=== PATIENT | female | born 1980 | race Caucasian/White ===

== ENCOUNTER 2017-04-20 17:49 | Emergency (ER) | payer MEDICAID ==
[~2017-04-20] VITALS: Wt 67.0 kg
[~2017-04-20 17:49] MED LIST: PREN1TAB12 PO; PREN1TAB49
[2017-04-20 19:16] VITALS: BP 143/78; PULSE 97; RESP 18
[2017-04-20] MEDS ORDERED: ZOLP5TAB PO (19:58)
--- NOTE | 2017-04-20 21:20 | ERD ---
ER Documentation Chief Complaint Date/Time DATE: 04/20/17 TIME: 21:17 Chief Complaint "I FEEL TIRED LATELY AND CAN'T SLEEP" HPI This is a 37-year-old female presents to the ER because she is not able to sleep over the last 4 days. Patient states that she tries to go to sleep at however she cannot. Patient denies any stress. She is complaining of irregular periods, which she is on her menstrual period right now. Patient was hoping to get hormone testing done today. Patient denies any fevers or chills persistence any chest pain shortness of breath. ROS 12 point review of systems was done, all negative except per HPI. Medications Home Meds Active Scripts Zolpidem Tartrate* (Ambien*) 5 Mg Tablet, 5 MG PO QHS Y for INSOMNIA, #3 TAB Prov:RANJIT FERNANDES 04/20/17 Reported Medications [None] No Conflict Check 10/17/12 Vit/Fe Fumarate/Fa ( 1-1 Tablet) 1 Tab Tablet, 1 TAB PO DAILY 06/21/12 Vits W-Ca,Fe,Fa(<1MG) () 1 Tab Tablet 11/15/11 Allergies Allergies: Coded Allergies: No Known Allergy (Unverified , 11/15/11) PMhx/Soc History of Surgery: No Anesthesia Reaction: No Hx Neurological Disorder: No Hx Respiratory Disorders: No Hx Cardiac Disorders: No Hx Psychiatric Problems: No Hx Miscellaneous Medical Probl: No Hx Alcohol Use: No Hx Substance Use: No Hx Tobacco Use: No Smoking Status: Never smoker Physical Exam Vitals Vital Signs Date Time Temp Pulse Resp B/P Pulse Ox O2 Delivery O2 Flow Rate FiO2 04/20/17 19:16 97 18 143/78 98 Room Air 04/20/17 17:53 97.9 91 18 140/92 99 Physical Exam GENERAL: The patient is well developed and appropriate for usual state of health , in no apparent distress. HEENT: Atraumatic. CHEST: Clear to auscultation bilaterally. There are no rales, wheezes or rhonchi. HEART: Regular rate and rhythm. No murmurs, clicks, rubs or gallops. NEURO: Alert and oriented. Cranial nerves II through XII are intact. Motor strength in all 4 extremities with 5/5 strength. Sensation grossly intact. Normal speech and gait. SKIN: There is no apparent rash or petechia. The skin is warm and dry. Procedures/MDM This is a 37-year-old female presents to the ER complaining of insomnia. Patient will be given 3 Ambien. In regards to patient irregular periods, slightly dysfunctional uterine bleeding, she is to follow-up with an BATCH ATTENDANT. I do not feel comfortable giving her oral contraceptives as her blood pressure is slightly elevated. Patient is also 37 years old which puts her at higher risk for DVT. Patient test is negative. Patient does not have any urinary frequency or dysuria suspicion for urinary tract infection is low. Patient was told to follow-up with her PCP regarding her slightly elevated blood pressure, she is on any hypertensive emergency or urgency at this time. Patient to return to ER if symptoms worsen. My medical decision making sure with the patient she understands and agrees with plan. Departure Diagnosis: Primary Impression: Insomnia Condition: Stable Patient Instructions: Treating Insomnia Additional Instructions: Llame al doctor MAANA y christiano nicholas WENDY PARA DENTRO DE 1-2 PINZON.Dgale a la secretaria que nosotros le instruimos hacer esta wendy.Avise o llame si ramirez condicin se empeora antes de la wendy. Regresa aqui si peor o no mejor. RANJIT FERNANDES Apr 20, 2017 21:20
== END 2017-04-20 20:52 | disposition home or self-care (01) ==
LOC: FTE 17:49
DX: G47.00 Insomnia, unspecified (principal)
CPT/HCPCS: 99283

== ENCOUNTER 2017-04-23 07:30 | Emergency (ER) | payer MEDICAID ==
[~2017-04-23] VITALS: Ht 160 cm; Wt 68.2 kg
[~2017-04-23 07:30] MED LIST changes: +ZOLP5TAB PO
[2017-04-23 07:41] VITALS: Ht 160 cm; Wt 68.2 kg
[2017-04-23 08:16] LABS: URINE BLOOD (Dip) POC 2+ (NEGATIVE)
[2017-04-23] MEDS ORDERED: LORAZEPAM 1 MG TAB PO ONE (08:30)
--- NOTE | 2017-04-23 09:15 | ERD ---
ER Documentation Chief Complaint Date/Time DATE: 04/23/17 TIME: 09:13 Chief Complaint "i feel sick" ran out of her ambien HPI This is a 37-year-old female who presents the emergency department today complaining of difficulty sleeping, feeling short of breath and dizzy. She does not have any more medication to help her sleep. States that she wants to get her hormones tested. Denies any fevers or chills, vomiting, headache, blurred vision, loss of consciousness. ROS All systems reviewed and are negative except as per history of present illness. Medications Home Meds Active Scripts Cephalexin* (Keflex*) 500 Mg Capsule, 500 MG PO QID for 7 Days, CAP Prov:MENDY ALEXANDER PA-C 04/23/17 Zolpidem Tartrate* (Ambien*) 5 Mg Tablet, 5 MG PO QHS Y for INSOMNIA, #3 TAB Prov:RANJIT FERNANDES 04/20/17 Reported Medications [None] No Conflict Check 10/17/12 Vit/Fe Fumarate/Fa ( 1-1 Tablet) 1 Tab Tablet, 1 TAB PO DAILY 06/21/12 Vits W-Ca,Fe,Fa(<1MG) () 1 Tab Tablet 11/15/11 Allergies Allergies: Coded Allergies: No Known Allergy (Unverified , 04/23/17) PMhx/Soc History of Surgery: No Anesthesia Reaction: No Hx Neurological Disorder: No Hx Respiratory Disorders: No Hx Cardiac Disorders: No Hx Psychiatric Problems: No Hx Miscellaneous Medical Probl: No Hx Alcohol Use: No Hx Substance Use: No Hx Tobacco Use: No Smoking Status: Never smoker Physical Exam Vitals Vital Signs Date Time Temp Pulse Resp B/P Pulse Ox O2 Delivery O2 Flow Rate FiO2 04/23/17 09:22 98.2 78 18 126/77 99 Room Air 04/23/17 07:41 97.9 100 18 123/70 99 Physical Exam Const: NAD Head: Atraumatic Eyes: Normal Conjunctiva ENT: Normal External Ears, Nose and Mouth. Neck: Full range of motion..~ No meningismus. Resp: Clear to auscultation bilaterally Cardio: Regular rate and rhythm, no murmurs Abd: Soft, non tender, non distended. Normal bowel sounds Skin: No petechiae or rashes Back: No midline or flank tenderness Ext: No cyanosis, or edema Neur: Awake and alert Psych: Normal Mood and Affect Results 24 hrs Laboratory Tests Test 04/23/17 08:23 Bedside Urine pH (LAB) 6.5 Bedside Urine Protein (LAB) 1+ Bedside Urine Glucose (UA) Negative Bedside Urine Ketones (LAB) 1+ Bedside Urine Blood 2+ Bedside Urine Nitrite (LAB) Positive Bedside Urine Leukocyte Esterase (L Trace Current Medications Medications (Trade) Dose Ordered Sig/Raquel Route PRN Reason Start Time Stop Time Status Last Admin Dose Admin Lorazepam (Ativan) 1 mg ONCE ONCE PO 04/23/17 08:30 04/23/17 08:31 DC 04/23/17 08:09 Procedures/MDM This is a 37-year-old female who presents to the emergency department today for multiple complaints. She was brought in by rescue ambulance. review of patient' s medical record she was seen here 3 days ago and was given 3 pills of Ambien. She stated that she ran out and would like more. She indicated that she felt dizzy and felt like she was short of breath but that improved upon coming to the emergency department. Patient's vital signs are stable. Her oxygen saturation was 99%. She was no longer complaining of shortness of breath and I do not feel she requires a chest x-ray at this time. Given patient's complaints of dizziness I did obtain an EKG and UA EKG read and interpreted by Dr. Jane [address] elevation. No QT prolongation. Low suspicion for acute VA, PE, pericarditis UA shows trace leukocyte esterase and positive nitrates. This may be the source of the patient's complaints of dizziness however I also considered anxiety related complaints given her multiple symptoms. Low suspicion for cardiac abnormality for dizziness. Patient was requesting hormone testing. She was asking for this a couple of days ago. It was explained to the patient that this is not something that is regularly done in the emergency department. 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 I explained her that she needed to keep that appointment. This time patient does not appear to have symptoms of anemia and I do not feel that she requires blood work. Patient was given Ativan here in the emergency department was reported feeling better. Do not feel that the patient would benefit from a prescription for benzodiazepines this time. She will be given a prescription for Keflex for home treat her urinary tract infection. At this time the patient is stable for discharge and outpatient management. Patient should follow up with their PCP in the next 1-2 days. They may return to the emergency department sooner for any persistent or worsening of symptoms. Patient understood and agreed with the plan. Departure Diagnosis: Primary Impression: Dizziness Additional Impression: UTI (urinary tract infection) Urinary tract infection type: site unspecified Hematuria presence: with hematuria Qualified Code: N39.0 - Urinary tract infection with hematuria, site unspecified Condition: Fair MENDY ALEXANDER PA-C Apr 23, 2017 09:15
[2017-04-23] MEDS ORDERED: CEPH-443 PO (09:17)
[2017-04-23 09:22] VITALS: BP 126/77; PULSE 78; RESP 18; TEMP 98.2
== END 2017-04-23 09:22 | disposition home or self-care (01) ==
LOC: FTE 07:30
DX: R42 Dizziness and giddiness (principal); N39.0 Urinary tract infection, site not specified
CPT/HCPCS: 81003; 93005; Z7502; Z7610